=== PATIENT | male | born 1985 | race Two or more races ===

== ENCOUNTER 2017-03-14 20:49 | Emergency (ER) | payer OTHER ==
--- NOTE | ~2017-03-14 | CR20 ---
[facility] A Service of [facility] & [facility] RADIOLOGY TEXT RESULTS PATIENT: RILEY VEGA LOCATION: CFTX : 83 UNIT #: [id number] AGE: [address]: Marlin Florence APRN SEX: M ORDER DR: [id number] [facility] [address] [place], [place] [address] [id number] MR#: [id number] Acc #: [id number] NAME: RILEY VEGA : 1985 SEX: M STUDY DATE/TIME: 03/14/2017 21:37 UNIT: [facility] ROOM: STUDY DESCRIPTION: CR Ankle Min 3 Views Lt Attending Physician: Marlin Florence A.P.R.N. Ordering Physician: Marlin Florence A.P.R.N. Primary Care Physician: Ileana GoelRArmando MEDICAL IMAGING REPORT This report is preliminary unless electronic signature is present Left ankle, 03/14/2017. INDICATION 31-year-old male with ankle pain and swelling tonight. Stepped in a hole and twisted the ankle. ; 3 views. No comparisons. FINDINGS There is mild to moderate lateral soft tissue swelling. No acute fracture. Ankle mortise intact. Fifth metatarsal base intact. IMPRESSION 1. Lateral soft tissue swelling, otherwise, negative. Dictated by... Elvis Villarreal M.D. THIS IS AN ELECTRONICALLY VERIFIED REPORT Elvis Villarreal M.D. at 03/14/2017 11:14 PM Saurabh TD: 03/14/2017 23:12 JOB #: [id number] MEDICAL IMAGING REPORT Page 1 of 1 COPY
== END 2017-03-14 22:45 | disposition home or self-care (01) ==
LOC: CED 20:49 → CFTX 20:49
DX: S93.412A Sprain of calcaneofibular ligament of left ankle, initial encounter (principal); I10 Essential (primary) hypertension; E11.9 Type 2 diabetes mellitus without complications; X37.1XXA Tornado, initial encounter; Y92.009 Unspecified place in unspecified non-institutional (private) residence as the place of occurrence of the external cause
CPT/HCPCS: 29405; 73610; 99283